=== PATIENT | male | born 1945 | race Asian ===

== ENCOUNTER 2017-11-15 11:37 | Outpatient (CLI) | payer OTHER ==
[2017-11-15 14:46] LABS: Bilirubin Negative (Negative); Blood, Urine Negative (Negative); Clarity CLEAR (Clear); Glucose, Urine (Dipstick) Negative (Negative); Leukocyte Negative (Negative); Nitrite Negative (Negative); Protein, Urine (Dipstick) Negative (Neg-Trace); Specific Gravity, Urine 1.014 (1.002-1.036); Urobilinogen 0.2 mg/dL (0.2-1.0)
[2017-11-15 14:48] LABS: Bacteria/HPF None Seen HPF (None Seen); Hemoglobin 15.9 g/dL (14.0-18.0); Hyaline Casts/LPF 0-3 HYALINE CAST LPF (0-3 Hyaline); Mean Corpuscular HGB CONC 32.4 g/dL (32.0-36.0); Mean Corpuscular Hemoglobin 28.7 pg (27.0-31.0); Mean Corpuscular Volume 88.6 fL (78.0-98.0); Mean Platelet Volume 7.3 fL (7.4-10.4); Platelet Count 194 thou/uL (130-400); RBC Distribution Width 12.1 % (11.5-14.5); RBC/HPF 0-3 HPF (0-3); Red Blood Cell (RBC) Count 5.56 mill/uL (4.70-6.10); Squamous Epithelial None Seen HPF (0-3); WBC/HPF None Seen HPF (0-3); White Blood Cell (WBC) Count 7.1 thou/uL (4.8-10.8)
[2017-11-15 14:57] LABS: Prothrombin Time 13.3 SEC (12.0-14.7)
[2017-11-15 15:08] LABS: Anion Gap 13 mmol/L (10-20); BUN (Urea Nitrogen) 12 mg/dL (8.4-25.7); Calc. Creatinine Clearance 0 mL/min (70-130); Calcium 9.8 mg/dL (7.8-10.44); Carbon Dioxide 25 mmol/L (23-31); Chloride 102 mmol/L (98-107); Estimated GFR-MDRD 80; Glucose 107 mg/dL (80-115); Potassium 3.9 mmol/L (3.5-5.1); Sodium 136 mmol/L (136-145)
--- NOTE | 2017-11-15 15:31 | EKG ---
Test Reason : Blood Pressure : / mmHG Vent. Rate : 063 BPM Atrial Rate : 063 BPM P-R Int : 166 ms QRS Dur : 110 ms QT Int : 436 ms P-R-T Axes : 069 -43 057 degrees QTc Int : 446 ms Normal sinus rhythm Left axis deviation Cannot rule out Anterior infarct , age undetermined Abnormal ECG No previous ECGs available Confirmed by BIRDIE RAMOS, DR. Lara ([id number]) on 11/15/2017 3:30:46 PM Referred By: ELIN Confirmed By:DR. Marco PACKER MD
== END 2017-11-15 11:38 | disposition home or self-care (01) ==
LOC: LABBT 11:37
PROVIDERS: ATTEND Orthopaedic Surgery
DX: Z01.818 Encounter for other preprocedural examination (principal); M17.11 Unilateral primary osteoarthritis, right knee
CPT/HCPCS: 80048; 81001; 85027; 85610; 87081; 93005; 93010

== ENCOUNTER 2017-11-15 14:30 | Inpatient (IN) | payer OTHER ==
[2017-11-15 12:34] VITALS: BMI 31.3
[2017-11-27] MEDS ORDERED: CEFAZOLIN/Water 2 GM/20 ML SYRINGE ONE (05:57)
[2017-11-27] MEDS ORDERED: Sodium Chloride 0.9% 100 ML ONE (05:57)
[2017-11-27] MEDS ORDERED: Vancomycin HCl 1.5 GM in Sodium Chloride 0.9% 250 ML 300 ML IVPB SCH ×2 (06:15→18:00)
[2017-11-27] MEDS ORDERED: Fentanyl 100 MCG/2 ML VIAL ONE ×5 (06:17→09:45)
[2017-11-27] MEDS ORDERED: Midazolam HCl 2 mg/2 ml Vial ONE (06:17)
[2017-11-27] MEDS ORDERED: Promethazine HCl 25 MG/ML VIAL IM PRN ×3 (07:02→11:41)
[2017-11-27] MEDS ORDERED: Zolpidem Tartrate 5 MG TAB PO PRN ×2 (07:02→11:41)
[2017-11-27] MEDS ORDERED: Ropivacaine HCl/PF 250 ML in Premix Bag 1 BAG NERVE BLCK SCH (07:02)
[2017-11-27] MEDS ORDERED: traMADol HCl 50 MG TAB PO PRN ×3 (07:02→11:41)
[2017-11-27] MEDS ORDERED: Ondansetron HCl/PF 4 MG/2 ML Vial IVP PRN ×3 (07:02→11:41)
[2017-11-27] MEDS ORDERED: Ketorolac Tromethamine 30 MG/ML VIAL IVP PRN ×2 (07:02→11:41)
[2017-11-27] MEDS ORDERED: HYDROcodone/Acetaminophen 7.5/325 mg Tablet PO PRN ×2 (07:03→07:04)
[2017-11-27] MEDS ORDERED: Fentanyl 100 MCG/2 ML VIAL IV PRN (07:03)
[2017-11-27] MEDS ORDERED: Bupivacaine/Epinephrine 0.25% 30 ML VIAL ONE ×2 (07:10→11:24)
[2017-11-27] MEDS ORDERED: Promethazine HCl 25 MG/ML VIAL SLOW IVP PRN (09:22)
[2017-11-27] MEDS ORDERED: Tranexamic Acid 1,000 MG in Sodium Chloride 0.9% 100 ML IVPB SCH (09:30)
[2017-11-27] MEDS ORDERED: Ropivacaine 0.2% 550 ML 550 ML NERVE BLCK SCH (09:44)
--- NOTE | 2017-11-27 10:03 | RAD ---
RIGHT KNEE TWO VIEWS: History: Post op. FINDINGS: Total knee prosthesis is in good position. No signs of fracture. IMPRESSION: Placement of a total knee prosthesis. POS: [facility]
[2017-11-27] MEDS ORDERED: Lidocaine 1% (PF) 30 ML VIAL ONE (10:27)
[2017-11-27] MEDS ORDERED: Ropivacaine 0.5% HCl/PF (150 MG/30 ML VIAL) ONE (11:24)
[2017-11-27] MEDS ORDERED: Ropivacaine 0.2% HCl/PF (40 MG/20 ML VIAL) ONE (11:24)
[2017-11-27] MEDS ORDERED: diphenhydrAMINE 25 MG CAP PO PRN (11:41)
[2017-11-27] MEDS ORDERED: Fentanyl 100 MCG/2 ML VIAL SLOW IVP PRN ×2 (11:41)
[2017-11-27] MEDS ORDERED: HYDROcodone/Acetaminophen 10/325 mg Tablet PO PRN (11:41)
[2017-11-27] MEDS ORDERED: Acetaminophen 325 MG TAB PO PRN (11:41)
[2017-11-27] MEDS ORDERED: Aspirin 81 mg Enteric Coated Tablet PO SCH (12:00)
[2017-11-27] MEDS ORDERED: Ferrous Gluconate 324 MG TAB PO SCH (12:00)
[2017-11-27] MEDS ORDERED: Multivitamin W/ Minerals 1 TAB PO SCH (12:00)
[2017-11-27] MEDS ORDERED: Senokot S 8.6-50 MG TAB PO SCH (12:00)
[2017-11-27] MEDS: HYDROcodone/Acetaminophen 10/325 mg Tablet PO PRN ×2 (12:14→21:33)
[2017-11-27] MEDS ORDERED: Milk Of Magnesia 30 ML UDCUP PO PRN (13:00)
[2017-11-27] MEDS ORDERED: Eucerin (Mineral Oil/Petrolatum,White) 30 gm Jar TOP PRN (13:00)
[2017-11-27] MEDS ORDERED: Senokot 8.6 MG TAB PO PRN (13:00)
[2017-11-27] MEDS ORDERED: Diabetic Tussin 200 MG/10 ML UDCUP PO PRN (13:00)
[2017-11-27] MEDS ORDERED: hydrALAZINE 20 MG/ML VIAL SLOW IVP PRN (13:00)
[2017-11-27] MEDS ORDERED: Ondansetron ODT 4 MG TAB PO PRN (13:00)
[2017-11-27] MEDS ORDERED: Artificial Tears 18 DROP/0.9 ML EA EYE PRN (13:00)
[2017-11-27] MEDS ORDERED: Loperamide HCl 2 MG CAP PO PRN (13:00)
[2017-11-27] MEDS ORDERED: Chloraseptic Spray 180 ml Bottle PO PRN (13:00)
[2017-11-27] MEDS ORDERED: Sodium Chloride 0.65% Nasal 44 ML BOT EA NARE PRN (13:00)
[2017-11-27] MEDS ORDERED: Mag-Al 1200 mg/1200 mg/30 ML UDCUP PO PRN (13:00)
--- NOTE | 2017-11-27 13:03 | PDOC.PN ---
- Subjective Encounter Start Date: 11/27/17 Encounter Start Time: 12:00 pt is admitted for right TKR, done without complication, we are consulted for medical management pt is currently asymptomatic Patient seen and examined. No new complaints. - Objective Resuscitation Status: Resuscitation Status FULL:Full Resuscitation MAR Reviewed: Yes Vital Signs & Weight: Vital Signs (12 hours) Temp Pulse Resp BP Pulse Ox 11/27/17 10:55 97.5 F L 74 18 109/69 100 Weight Weight 200 lb Radiology Reviewed by me: Yes (knee xray reviewed) Phys Exam - Physical Examination Constitutional: NAD HEENT: PERRLA, moist MMs, sclera anicteric Neck: no JVD, supple Respiratory: no wheezing, no rales, no rhonchi Cardiovascular: RRR, no significant murmur, no rub Gastrointestinal: soft, non-tender, no distention, positive bowel sounds Musculoskeletal: no edema, pulses present right knee with dressing, nerve block in place Neurological: non-focal, normal sensation, moves all 4 limbs Psychiatric: normal affect, A&O x 3 Skin: no rash, normal turgor Dx/Plan (1) Status post total right knee replacement Code(s): Z96.651 - PRESENCE OF RIGHT ARTIFICIAL KNEE JOINT Status: Acute (2) GERD (gastroesophageal reflux disease) Code(s): K21.9 - GASTRO-ESOPHAGEAL REFLUX DISEASE WITHOUT ESOPHAGITIS Status: Chronic (3) Hypertension Code(s): I10 - ESSENTIAL (PRIMARY) HYPERTENSION Status: Chronic (4) Obesity (BMI 30.0-34.9) Code(s): E66.9 - OBESITY, UNSPECIFIED Status: Chronic (5) Osteoarthritis Code(s): M19.90 - UNSPECIFIED OSTEOARTHRITIS, UNSPECIFIED SITE Status: Chronic - Plan cont current plan of care, PT/OT * continue aspirin for DVT prophylaxis as per protocol * add pepcid for GI prophylaxis * code status- full code * nerve block as per anesthesia * PT/OT as per [facility] [place] protocol * pain control with pain meds as below * medication reviewed as below * symptomatic treatment * home medication reconciled. Review of Systems - Review of Systems Eyes: negative: Pain, Vision Change, Conjunctivae Inflammation, Eyelid Inflammation, Redness, Other ENT: negative: Ear Pain, Ear Discharge, Nose Pain, Nose Discharge, Nose Congestion, Mouth Pain, Mouth Swelling, Throat Pain, Throat Swelling, Other Respiratory: negative: Cough, Dry, Shortness of Breath, Hemoptysis, SOB with Excertion, Pleuritic Pain, Sputum, Wheezing Cardiovascular: negative: chest pain, palpitations, orthopnea, paroxysmal nocturnal dyspnea, edema, light headedness, other Gastrointestinal: negative: Nausea, Vomiting, Abdominal Pain, Diarrhea, Constipation, Melena, Hematochezia, Other Genitourinary: negative: Dysuria, Frequency, Incontinence, Hematuria, Retention , Other Musculoskeletal: negative: Neck Pain, Shoulder Pain, Arm Pain, Back Pain, Hand Pain, Leg Pain, Foot Pain, Other Skin: negative: Rash, Lesions, Rocky, Bruising, Other - Medications/Allergies Allergies/Adverse Reactions: Allergies Allergy/AdvReac Type Severity Reaction Status Date / Time tamsulosin [From Flomax] Allergy Verified 11/15/17 13:25 Medications: Current Medications Acetaminophen (Tylenol) 650 mg PO Q4H PRN PRN Reason: SHETTY/ T > 101F; Mild Pain (1-3) Hydrocodone Bitart/Acetaminophen ([place] 10/325) 1 tab PO Q4H PRN PRN Reason: Moderate Pain (4-6) Hydrocodone Bitart/Acetaminophen ([place] 10/325) 2 tab PO Q4H PRN PRN Reason: Severe Pain (7-10) Last Admin: 11/27/17 12:14 Dose: 2 tab Al Hydroxide/Mg Hydroxide (Maalox) 15 ml PO Q4H PRN PRN Reason: Heartburn or Indigestion Artificial Tears (Tears Naturale) 0 drop EA EYE PRN PRN PRN Reason: Dry Eyes Aspirin (Ecotrin) 81 mg PO BID [facility] Aspirin (Ecotrin) 81 mg PO NOW [facility] Stop: 11/27/17 14:00 Last Admin: 11/27/17 12:14 Dose: 81 mg Atorvastatin Calcium (Lipitor) 20 mg PO DAILY [facility] Cefazolin Sodium (Ancef) 2 gm SLOW IVP Q8HR [facility] Stop: 11/27/17 22:01 Diphenhydramine HCl (Benadryl) 25 mg PO Q6H PRN PRN Reason: Itching Divalproex Sodium (Depakote) 500 mg PO DAILY [facility] Famotidine (Pepcid) 20 mg PO BID [facility] Fentanyl (Sublimaze) 50 mcg SLOW IVP Q30MIN PRN PRN Reason: Moderate Pain (4-6) Fentanyl (Sublimaze) 100 mcg SLOW IVP Q1H PRN PRN Reason: Severe Pain (7-10) Ferrous Gluconate (Fergon) 324 mg PO BID [facility] Ferrous Gluconate (Fergon) 324 mg PO NOW [facility] Stop: 11/27/17 14:00 Last Admin: 11/27/17 12:13 Dose: 324 mg Guaifenesin (Robitussin Sf) 200 mg PO Q4H PRN PRN Reason: Cough Hydralazine HCl (Apresoline) 10 mg SLOW IVP Q4H PRN PRN Reason: Systolic BP > 180 Ropivacaine (Ropivacaine 0.2% 550 Ml) 550 mls @ 0 mls/hr NERVE BLCK INF [facility] Dextrose/Sodium Chloride (D5 1/2 Ns) 1,000 mls @ 100 mls/hr IV .Q10H [facility] Vancomycin HCl 1.5 gm/ Sodium (Chloride) 300 mls @ 200 mls/hr IVPB 1800 [facility] Stop: 11/27/17 21:00 Iron/Minerals/Multivitamins (Theragran M) 1 tab PO DAILY [facility] Iron/Minerals/Multivitamins (Theragran M) 1 tab PO NOW [facility] Stop: 11/27/17 14:00 Last Admin: 11/27/17 12:13 Dose: 1 tab Ketorolac Tromethamine (Toradol) 15 mg IVP Q8HR PRN PRN Reason: Pain Stop: 11/29/17 11:42 Loperamide HCl (Imodium) 2 mg PO PRN PRN PRN Reason: Diarrhea/Loose Stools Magnesium Hydroxide (Milk Of Magnesium) 30 ml PO DAILYPRN PRN PRN Reason: Constipation Mineral Oil/White Petrolatum (Eucerin Cream) 0 gm TOP BIDPRN PRN PRN Reason: Dry Skin Ondansetron HCl (Zofran) 4 mg IVP Q6H PRN PRN Reason: Nausea/Vomiting Ondansetron HCl (Zofran Odt) 4 mg PO Q6H PRN PRN Reason: Nausea/Vomiting Phenol (Chloraseptic [place] 180 Ml Bot) 0 ml PO PRN PRN PRN Reason: Sore Throat Promethazine HCl (Phenergan) 12.5 mg IM Q4H PRN PRN Reason: Nausea/Vomiting Senna (Senokot) 2 tab PO HSPRN PRN PRN Reason: Constipation Senna/Docusate Sodium (Senokot S) 2 tab PO BID [facility] Senna/Docusate Sodium (Senokot S) 2 tab PO NOW [facility] Stop: 11/27/17 14:00 Last Admin: 11/27/17 12:13 Dose: 2 tab Sodium Chloride (Flush - Normal Saline) 10 ml IVF PRN PRN PRN Reason: Saline Flush Sodium Chloride ([place] Nasal [place] 0.65%) 0 ml EA NARE QIDPRN PRN PRN Reason: Nasal Congestion Tramadol HCl (Ultram) 100 mg PO Q6H PRN PRN Reason: Mild Pain (1-3) Zolpidem Tartrate (Ambien) 5 mg PO HSPRN PRN PRN Reason: Insomnia
[2017-11-27] MEDS ORDERED: Ketorolac Tromethamine 30 MG/ML VIAL ONE (13:26)
[2017-11-27] MEDS ORDERED: Ondansetron HCl/PF 4 MG/2 ML Vial ONE (13:26)
[2017-11-27] MEDS ORDERED: PROPOFOL 200 MG/20 ML VIAL ONE (13:26)
--- NOTE | 2017-11-27 15:43 | OP ---
DATE OF PROCEDURE: 11/27/2017 PREOPERATIVE DIAGNOSIS: Right knee osteoarthritis. POSTOPERATIVE DIAGNOSIS: Right knee osteoarthritis. PROCEDURE PERFORMED: Right total knee arthroplasty. STAFF: Hakan Marks M.D. [employer] OPERATOR: Han Hyde PA-C ANESTHESIA: Jones. The patient received LMA with a single shot sciatic and an indwelling abductor canal catheter. ESTIMATED BLOOD LOSS: 200 mL. TOURNIQUET TIME: 88 minutes at 300 mmHg. ANTIBIOTICS: Ancef 2 grams, vancomycin 1.5 grams. The patient received TXA 1 gram. IMPLANTS: [place] [employer] components, size 4, CR femur, size 4 tibial primary baseplate and 4 CS 9 mm poly and A29 patella with antibiotic Simplex cement. COMPLICATIONS: None. HISTORY OF PRESENT ILLNESS: Mr. Marroquin is a 71-year-old male, who speaks farsi through his son as well as an translator and interpreter. I previously had talked to him about right total knee arthroplasty done with history of a left total knee arthroplasty. I discussed with the patient the risks and benefits of right total knee arthroplasty to include pain, scar, bleeding, infection, damage to vital structures, decreased range of motion or strength, continued pain despite surgical intervention, damage to vital signs structures, loss of life or limb, fracture above the implants. The patient understood these risks and did elect to proceed. DESCRIPTION OF PROCEDURE: Timeout was performed designating the patient's right lower extremity as the operative site based on sight, consents, markings. After completion of timeout, the patient's extremity was prepped and draped in sterile fashion. Anterior midline approach, medial patellar arthrotomy, exposed the femur. The patient preoperatively had about a 10-degree flexion contracture that we took down the medial soft tissue release to excise our fat pad. We mapped out our femur, cut it in 4 degrees of anterior slope with 10 and 8 mm respectively to help with elevation of the joint line. We then had a good butterfly. We then placed the guide, 3 degrees of external rotation, and mapped a cut of 4 with a little bit of notching, but I felt like it sized better medial laterally, after osteophytes were removed. I then took an anterior and posterior chamfer cuts, removed the osteophytes. We then placed our pickle fork in place and we took down the ACL. We exposed the tibia. We mapped out the tibia with our guide and cut in 0 degrees varus valgus, 4 degrees of slope, and cut 0 and 8. We ended up having to go up 2 more mm due to the tightness. We then placed our laminar jig mill operator. We did our medial soft tissue release and took down the medial tibia to help with our medial soft tissue release, taking the osteotome posteriorly to decompress. The PCL was intact. With our PCL release, we then moved laterally and removed the lateral meniscus, removed osteophytes posteriorly. After the decompression, I placed our tray in place. I put him through an arc of flexion and extension. Therefore, I did not desire to move forward with any further flexion, so we went back and recut 2 more millimeters of patella. After we did that, the patient came in with full extension, maybe 5 degrees hyperextension, had good stability, varus and valgus, had good anterior and posterior drawer. I like the overall alignment of components. Therefore, I elected take this and finally everted the patella cut it from 28 down to about 17 mm, placed an A29 patella, which medialized. We then did a little bit of the lateral release, was then tracking quite as well as I would like. We then washed, drilled as well as cut our keel for tibia, cemented our tibia, placed our poly, cemented our femur, and removed all excess cement. We then everted and cemented our patella. We closed the arthrotomy with #2 Vicryl, #2 Quill, 0 Quill, 2-0 Quill , and glue. The patient will be admitted to [facility] for postop protocol. I will follow up with the patient in-house in the next 2 weeks. The patient will use antibiotic vancomycin. MENDY
[2017-11-27] MEDS: CEFAZOLIN/Water 2 GM/20 ML SYRINGE SLOW IVP SCH ×2 (15:45→21:39)
[2017-11-27] MEDS: Dextrose 5 %-0.45 % NaCl 1,000 ML IV SCH ×2 (18:08→21:50)
[2017-11-27] MEDS: Famotidine 20 MG TAB PO SCH (21:32)
[2017-11-27] MEDS: Ferrous Gluconate 324 MG TAB PO SCH (21:33)
[2017-11-27] MEDS: Aspirin 81 mg Enteric Coated Tablet PO SCH (21:33)
[2017-11-27] MEDS: Senokot S 8.6-50 MG TAB PO SCH (21:33)
[2017-11-28] MEDS: HYDROcodone/Acetaminophen 10/325 mg Tablet PO PRN ×4 (02:20→23:10)
[2017-11-28 05:52] LABS: Hemoglobin 12.7 g/dL (14.0-18.0); Mean Corpuscular HGB CONC 33.2 g/dL (32.0-36.0); Mean Corpuscular Volume 87.5 fL (78.0-98.0); Mean Platelet Volume 6.7 fL (7.4-10.4); Platelet Count 153 thou/uL (130-400); Red Blood Cell (RBC) Count 4.36 mill/uL (4.70-6.10); White Blood Cell (WBC) Count 7.9 thou/uL (4.8-10.8)
[2017-11-28] MEDS: Dextrose 5 %-0.45 % NaCl 1,000 ML IV SCH ×2 (07:44→10:07)
[2017-11-28] MEDS: Atorvastatin Calcium 20 MG TAB PO SCH (09:07)
[2017-11-28] MEDS: Aspirin 81 mg Enteric Coated Tablet PO SCH ×2 (09:11→20:48)
[2017-11-28] MEDS: Ferrous Gluconate 324 MG TAB PO SCH ×2 (09:11→20:48)
[2017-11-28] MEDS: Senokot S 8.6-50 MG TAB PO SCH ×2 (09:11→20:48)
[2017-11-28] MEDS: Multivitamin W/ Minerals 1 TAB PO SCH (09:11)
[2017-11-28] MEDS: Famotidine 20 MG TAB PO SCH ×2 (09:12→20:48)
[2017-11-28] MEDS: Divalproex Sodium DR 500 MG TAB PO SCH (09:26)
--- NOTE | 2017-11-28 10:20 | PDOC.PN ---
- Subjective Encounter Start Date: 11/28/17 Encounter Start Time: 08:20 Patient seen and examined. No new complaints. No overnight events today pt is doing well, pain is controlled - Objective Resuscitation Status: Resuscitation Status FULL:Full Resuscitation MAR Reviewed: Yes Vital Signs & Weight: Vital Signs (12 hours) Temp Pulse Resp BP BP Pulse Ox 11/28/17 08:25 93 L 11/28/17 07:30 97.6 F 82 18 115/70 93 L 11/28/17 04:30 99.3 F 98 16 115/69 93 L 11/28/17 00:43 97.6 F 96 16 93/55 L 93 L Weight Weight 200 lb I&O: 11/27/17 11/28/17 11/29/17 06:59 06:59 06:59 Intake Total 1925 Output Total 300 Balance 1625 Result Diagrams: 11/28/17 05:19 Phys Exam - Physical Examination Constitutional: NAD HEENT: PERRLA, moist MMs, sclera anicteric Neck: no JVD, supple Respiratory: no wheezing, no rales, no rhonchi Cardiovascular: RRR, no significant murmur, no rub Gastrointestinal: soft, non-tender, no distention, positive bowel sounds right knee with dressing, nerve block in place Neurological: non-focal, normal sensation, moves all 4 limbs Lymphatic: no nodes Psychiatric: normal affect, A&O x 3 Skin: no rash, normal turgor Dx/Plan (1) Status post total right knee replacement Code(s): Z96.651 - PRESENCE OF RIGHT ARTIFICIAL KNEE JOINT Status: Acute (2) GERD (gastroesophageal reflux disease) Code(s): K21.9 - GASTRO-ESOPHAGEAL REFLUX DISEASE WITHOUT ESOPHAGITIS Status: Chronic (3) Hypertension Code(s): I10 - ESSENTIAL (PRIMARY) HYPERTENSION Status: Chronic (4) Obesity (BMI 30.0-34.9) Code(s): E66.9 - OBESITY, UNSPECIFIED Status: Chronic (5) Osteoarthritis Code(s): M19.90 - UNSPECIFIED OSTEOARTHRITIS, UNSPECIFIED SITE Status: Chronic - Plan cont current plan of care, PT/OT * continue aspirin for DVT prophylaxis as per protocol * continue pepcid for GI prophylaxis * nerve block as per anesthesia * PT/OT as per [facility] protocol * pain control with pain meds as below * medication reviewed as below * symptomatic treatment * medically stable with current treatment * discharge will defer to primary team Review of Systems - Review of Systems Eyes: negative: Pain, Vision Change, Conjunctivae Inflammation, Eyelid Inflammation, Redness, Other ENT: negative: Ear Pain, Ear Discharge, Nose Pain, Nose Discharge, Nose Congestion, Mouth Pain, Mouth Swelling, Throat Pain, Throat Swelling, Other Respiratory: negative: Cough, Dry, Shortness of Breath, Hemoptysis, SOB with Excertion, Pleuritic Pain, Sputum, Wheezing Cardiovascular: negative: chest pain, palpitations, orthopnea, paroxysmal nocturnal dyspnea, edema, light headedness, other Gastrointestinal: negative: Nausea, Vomiting, Abdominal Pain, Diarrhea, Constipation, Melena, Hematochezia, Other Genitourinary: negative: Dysuria, Frequency, Incontinence, Hematuria, Retention , Other Musculoskeletal: negative: Neck Pain, Shoulder Pain, Arm Pain, Back Pain, Hand Pain, Leg Pain, Foot Pain, Other Skin: negative: Rash, Lesions, Rocky, Bruising, Other - Medications/Allergies Allergies/Adverse Reactions: Allergies Allergy/AdvReac Type Severity Reaction Status Date / Time tamsulosin [From Flomax] Allergy Verified 11/15/17 13:25 Medications: Current Medications Acetaminophen (Tylenol) 650 mg PO Q4H PRN PRN Reason: SHETTY/ T > 101F; Mild Pain (1-3) Hydrocodone Bitart/Acetaminophen ([place] 10/325) 1 tab PO Q4H PRN PRN Reason: Moderate Pain (4-6) Hydrocodone Bitart/Acetaminophen ([place] 10/325) 2 tab PO Q4H PRN PRN Reason: Severe Pain (7-10) Last Admin: 11/28/17 09:11 Dose: 2 tab Al Hydroxide/Mg Hydroxide (Maalox) 15 ml PO Q4H PRN PRN Reason: Heartburn or Indigestion Artificial Tears (Tears Naturale) 0 drop EA EYE PRN PRN PRN Reason: Dry Eyes Aspirin (Ecotrin) 81 mg PO BID [facility] Last Admin: 11/28/17 09:11 Dose: 81 mg Atorvastatin Calcium (Lipitor) 20 mg PO DAILY [facility] Last Admin: 11/28/17 09:07 Dose: 20 mg Diphenhydramine HCl (Benadryl) 25 mg PO Q6H PRN PRN Reason: Itching Divalproex Sodium (Depakote) 500 mg PO DAILY [facility] Last Admin: 11/28/17 09:26 Dose: 500 mg Famotidine (Pepcid) 20 mg PO BID [facility] Last Admin: 11/28/17 09:12 Dose: 20 mg Fentanyl (Sublimaze) 50 mcg SLOW IVP Q30MIN PRN PRN Reason: Moderate Pain (4-6) Fentanyl (Sublimaze) 100 mcg SLOW IVP Q1H PRN PRN Reason: Severe Pain (7-10) Ferrous Gluconate (Fergon) 324 mg PO BID [facility]PL[facility] Last Admin: 11/28/17 09:11 Dose: 324 mg Guaifenesin (Robitussin Sf) 200 mg PO Q4H PRN PRN Reason: Cough Hydralazine HCl (Apresoline) 10 mg SLOW IVP Q4H PRN PRN Reason: Systolic BP > 180 Ropivacaine (Ropivacaine 0.2% 550 Ml) 550 mls @ 0 mls/hr NERVE BLCK INF REPLACED BY [facility] Dextrose/Sodium Chloride (D5 1/2 Ns) 1,000 mls @ 100 mls/hr IV .Q10H REPLACED BY [facility] Last Admin: 11/28/17 10:07 Dose: Not Given Iron/Minerals/Multivitamins (Theragran M) 1 tab PO DAILY [facility] Last Admin: 11/28/17 09:11 Dose: 1 tab Ketorolac Tromethamine (Toradol) 15 mg IVP Q8HR PRN PRN Reason: Pain Stop: 11/29/17 11:42 Last Admin: 11/28/17 04:23 Dose: 15 mg Loperamide HCl (Imodium) 2 mg PO PRN PRN PRN Reason: Diarrhea/Loose Stools Magnesium Hydroxide (Milk Of Magnesium) 30 ml PO DAILYPRN PRN PRN Reason: Constipation Mineral Oil/White Petrolatum (Eucerin Cream) 0 gm TOP BIDPRN PRN PRN Reason: Dry Skin Ondansetron HCl (Zofran) 4 mg IVP Q6H PRN PRN Reason: Nausea/Vomiting Ondansetron HCl (Zofran Odt) 4 mg PO Q6H PRN PRN Reason: Nausea/Vomiting Phenol (Chloraseptic [place] 180 Ml Bot) 0 ml PO PRN PRN PRN Reason: Sore Throat Promethazine HCl (Phenergan) 12.5 mg IM Q4H PRN PRN Reason: Nausea/Vomiting Senna (Senokot) 2 tab PO HSPRN PRN PRN Reason: Constipation Senna/Docusate Sodium (Senokot S) 2 tab PO BID [facility] Last Admin: 11/28/17 09:11 Dose: 2 tab Sodium Chloride (Flush - Normal Saline) 10 ml IVF PRN PRN PRN Reason: Saline Flush Sodium Chloride ([place] Nasal [place] 0.65%) 0 ml EA NARE QIDPRN PRN PRN Reason: Nasal Congestion Tramadol HCl (Ultram) 100 mg PO Q6H PRN PRN Reason: Mild Pain (1-3) Zolpidem Tartrate (Ambien) 5 mg PO HSPRN PRN PRN Reason: Insomnia
[2017-11-29] MEDS: Dextrose 5 %-0.45 % NaCl 1,000 ML IV SCH ×2 (04:55→14:07)
[2017-11-29 05:48] LABS: Hemoglobin 12.6 g/dL (14.0-18.0); Mean Corpuscular HGB CONC 33.1 g/dL (32.0-36.0); Mean Corpuscular Hemoglobin 29.3 pg (27.0-31.0); Mean Corpuscular Volume 88.7 fL (78.0-98.0); Platelet Count 152 thou/uL (130-400); Red Blood Cell (RBC) Count 4.31 mill/uL (4.70-6.10); White Blood Cell (WBC) Count 8.1 thou/uL (4.8-10.8)
[2017-11-29] MEDS: Atorvastatin Calcium 20 MG TAB PO SCH (08:37)
[2017-11-29] MEDS: Famotidine 20 MG TAB PO SCH (08:37)
[2017-11-29] MEDS: Multivitamin W/ Minerals 1 TAB PO SCH (08:37)
[2017-11-29] MEDS: Divalproex Sodium DR 500 MG TAB PO SCH (08:37)
[2017-11-29] MEDS: Ferrous Gluconate 324 MG TAB PO SCH (08:37)
[2017-11-29] MEDS: Aspirin 81 mg Enteric Coated Tablet PO SCH (08:37)
[2017-11-29] MEDS: HYDROcodone/Acetaminophen 10/325 mg Tablet PO PRN ×2 (08:38→16:39)
[2017-11-29] MEDS: Senokot S 8.6-50 MG TAB PO SCH (08:38)
--- NOTE | 2017-11-29 09:38 | PDOC.PN ---
- Subjective Encounter Start Date: 11/29/17 Encounter Start Time: 07:50 Patient seen and examined. No new complaints. No overnight events - Objective Resuscitation Status: Resuscitation Status FULL:Full Resuscitation MAR Reviewed: Yes Vital Signs & Weight: Vital Signs (12 hours) Temp Pulse Resp BP Pulse Ox 11/29/17 08:54 98.3 F 82 16 111/62 94 L 11/29/17 03:31 98.7 F 91 16 126/75 91 L 11/28/17 23:47 98.7 F 97 18 121/72 93 L Weight Admit Weight 200 lb Weight 200 lb I&O: 11/28/17 11/29/17 11/30/17 06:59 06:59 06:59 Intake Total 1925 1450 Output Total 300 900 Balance 1625 550 Result Diagrams: 11/29/17 05:08 Phys Exam - Physical Examination Constitutional: NAD HEENT: PERRLA, moist MMs, sclera anicteric Neck: no JVD, supple Respiratory: no wheezing, no rales, no rhonchi Cardiovascular: RRR, no significant murmur, no rub Gastrointestinal: soft, non-tender, no distention, positive bowel sounds Musculoskeletal: no edema, pulses present right knee with dressing, nerve block in place Neurological: non-focal, normal sensation, moves all 4 limbs Psychiatric: normal affect, A&O x 3 Skin: no rash, normal turgor Dx/Plan (1) Status post total right knee replacement Code(s): Z96.651 - PRESENCE OF RIGHT ARTIFICIAL KNEE JOINT Status: Acute (2) GERD (gastroesophageal reflux disease) Code(s): K21.9 - GASTRO-ESOPHAGEAL REFLUX DISEASE WITHOUT ESOPHAGITIS Status: Chronic (3) Hypertension Code(s): I10 - ESSENTIAL (PRIMARY) HYPERTENSION Status: Chronic (4) Obesity (BMI 30.0-34.9) Code(s): E66.9 - OBESITY, UNSPECIFIED Status: Chronic (5) Osteoarthritis Code(s): M19.90 - UNSPECIFIED OSTEOARTHRITIS, UNSPECIFIED SITE Status: Chronic - Plan cont current plan of care, PT/OT * medication reviewed as below * symptomatic treatment * pain controlled * doing well * medically stable * OK to DC if primary team ok. * resume home meds on discharge Review of Systems - Review of Systems ENT: negative: Ear Pain, Ear Discharge, Nose Pain, Nose Discharge, Nose Congestion, Mouth Pain, Mouth Swelling, Throat Pain, Throat Swelling, Other Respiratory: negative: Cough, Dry, Shortness of Breath, Hemoptysis, SOB with Excertion, Pleuritic Pain, Sputum, Wheezing Cardiovascular: negative: chest pain, palpitations, orthopnea, paroxysmal nocturnal dyspnea, edema, light headedness, other Gastrointestinal: negative: Nausea, Vomiting, Abdominal Pain, Diarrhea, Constipation, Melena, Hematochezia, Other Genitourinary: negative: Dysuria, Frequency, Incontinence, Hematuria, Retention , Other Musculoskeletal: negative: Neck Pain, Shoulder Pain, Arm Pain, Back Pain, Hand Pain, Leg Pain, Foot Pain, Other - Medications/Allergies Allergies/Adverse Reactions: Allergies Allergy/AdvReac Type Severity Reaction Status Date / Time tamsulosin [From Flomax] Allergy Verified 11/15/17 13:25 Medications: Current Medications Acetaminophen (Tylenol) 650 mg PO Q4H PRN PRN Reason: SHETTY/ T > 101F; Mild Pain (1-3) Hydrocodone Bitart/Acetaminophen ([place] 10/325) 1 tab PO Q4H PRN PRN Reason: Moderate Pain (4-6) Hydrocodone Bitart/Acetaminophen ([place] 10/325) 2 tab PO Q4H PRN PRN Reason: Severe Pain (7-10) Last Admin: 11/29/17 08:38 Dose: 2 tab Al Hydroxide/Mg Hydroxide (Maalox) 15 ml PO Q4H PRN PRN Reason: Heartburn or Indigestion Artificial Tears (Tears Naturale) 0 drop EA EYE PRN PRN PRN Reason: Dry Eyes Aspirin (Ecotrin) 81 mg PO BID [facility] Last Admin: 11/29/17 08:37 Dose: 81 mg Atorvastatin Calcium (Lipitor) 20 mg PO DAILY [facility] Last Admin: 11/29/17 08:37 Dose: 20 mg Diphenhydramine HCl (Benadryl) 25 mg PO Q6H PRN PRN Reason: Itching Divalproex Sodium (Depakote) 500 mg PO DAILY [facility] Last Admin: 11/29/17 08:37 Dose: 500 mg Famotidine (Pepcid) 20 mg PO BID [facility] Last Admin: 11/29/17 08:37 Dose: 20 mg Fentanyl (Sublimaze) 50 mcg SLOW IVP Q30MIN PRN PRN Reason: Moderate Pain (4-6) Fentanyl (Sublimaze) 100 mcg SLOW IVP Q1H PRN PRN Reason: Severe Pain (7-10) Ferrous Gluconate (Fergon) 324 mg PO BID [facility] Last Admin: 11/29/17 08:37 Dose: 324 mg Guaifenesin (Robitussin Sf) 200 mg PO Q4H PRN PRN Reason: Cough Hydralazine HCl (Apresoline) 10 mg SLOW IVP Q4H PRN PRN Reason: Systolic BP > 180 Ropivacaine (Ropivacaine 0.2% 550 Ml) 550 mls @ 0 mls/hr NERVE BLCK INF [facility] Dextrose/Sodium Chloride (D5 1/2 Ns) 1,000 mls @ 100 mls/hr IV .Q10H [facility] Last Admin: 11/29/17 04:55 Dose: Not Given Iron/Minerals/Multivitamins (Theragran M) 1 tab PO DAILY [facility] Last Admin: 11/29/17 08:37 Dose: 1 tab Ketorolac Tromethamine (Toradol) 15 mg IVP Q8HR PRN PRN Reason: Pain Stop: 11/29/17 11:42 Last Admin: 11/28/17 04:23 Dose: 15 mg Loperamide HCl (Imodium) 2 mg PO PRN PRN PRN Reason: Diarrhea/Loose Stools Magnesium Hydroxide (Milk Of Magnesium) 30 ml PO DAILYPRN PRN PRN Reason: Constipation Mineral Oil/White Petrolatum (Eucerin Cream) 0 gm TOP BIDPRN PRN PRN Reason: Dry Skin Ondansetron HCl (Zofran) 4 mg IVP Q6H PRN PRN Reason: Nausea/Vomiting Ondansetron HCl (Zofran Odt) 4 mg PO Q6H PRN PRN Reason: Nausea/Vomiting Phenol (Chloraseptic [place] 180 Ml Bot) 0 ml PO PRN PRN PRN Reason: Sore Throat Promethazine HCl (Phenergan) 12.5 mg IM Q4H PRN PRN Reason: Nausea/Vomiting Senna (Senokot) 2 tab PO HSPRN PRN PRN Reason: Constipation Senna/Docusate Sodium (Senokot S) 2 tab PO BID [facility] Last Admin: 11/29/17 08:38 Dose: 2 tab Sodium Chloride (Flush - Normal Saline) 10 ml IVF PRN PRN PRN Reason: Saline Flush Sodium Chloride ([place] Nasal [place] 0.65%) 0 ml EA NARE QIDPRN PRN PRN Reason: Nasal Congestion Tramadol HCl (Ultram) 100 mg PO Q6H PRN PRN Reason: Mild Pain (1-3) Last Admin: 11/29/17 01:37 Dose: 100 mg Zolpidem Tartrate (Ambien) 5 mg PO HSPRN PRN PRN Reason: Insomnia
--- NOTE | 2017-11-29 10:32 | DIS ---
DATE OF ADMISSION: 11/27/2017 DATE OF DISCHARGE: 11/29/2017 PRIMARY CARE PHYSICIAN: Dr. Bruna Will. DISCHARGE DISPOSITION: Home. PRIMARY DISCHARGE DIAGNOSIS: Status post right total knee replacement. SECONDARY DISCHARGE DIAGNOSES: Gastroesophageal reflux disease, obesity with BMI 31, hypertension, o steoarthritis. PRIMARY PROCEDURE/OPERATION: Right total knee replacement. RADIOLOGICAL INVESTIGATION: Knee x-ray. SIGNIFICANT LABORATORY DATA: WBC 8.1, hemoglobin 12.6, platelet 152. DISCHARGE MEDICATIONS: [place] 10 one or two tablets q.4 hourly p.r.n. for pain, aspirin 81 mg p.o. b. i.d., tramadol 50 mg p.o. daily, Micardis 40 mg p.o. daily, ranitidine 300 mg p.o. daily, Depakote 50 0 mg p.o. daily, Lipitor 20 mg p.o. daily. CONTRAINDICATIONS: None. CODE STATUS: FULL CODE. INPATIENT CONSULTANTS: Dr. Marks was primary while in hospital. Sound Team was consulted for [facility] comanagement. TEST RESULTS PENDING ON DISCHARGE: None. ALLERGIES: TAMSULOSIN. DISCHARGE PLAN: Post hospital, the patient will follow up with Dr. Marks on 12/18/2017 at 1:00 p.m . The patient will make followup appointment with primary care physician. HOSPITAL COURSE: A 71-year-old male with above-mentioned medical problem who was electively admitted by Dr. Marks for right total knee replacement which was done on 11/27/2017. Postoperatively, a [facility] Sound team was consulted for medical comanagement. Patient medical problem remains st able. While in hospital, we continued all his home medication. He was given aspirin for DVT prophyl axis. He had no block. He did very well with [facility] protocol treatment. The patient is p lanned for discharge by primary team today. The patient is seen and examined at bedside today. He w ill resume all his above-mentioned medication including pain medication and aspirin for DVT prophylax is. Please see my progress note from today for further detail.
[2017-11-29 15:22] VITALS: BP 132/77; TEMP 98.3
== END 2017-11-29 16:55 | disposition home or self-care (01) | DRG 470 ==
LOC: SJJU 11-27 05:34
PROVIDERS: ADMIT Orthopaedic Surgery; ATTEND Orthopaedic Surgery
PROC: 0SRC0J9 Replacement of Right Knee Joint with Synthetic Substitute, Cemented, Open Approach (ICD-10-PCS; principal; 2017-11-27)
DX: M17.11 Unilateral primary osteoarthritis, right knee (principal); K21.9 Gastro-esophageal reflux disease without esophagitis; I10 Essential (primary) hypertension; E66.9 Obesity, unspecified; Z68.31 Body mass index [BMI] 31.0-31.9, adult; Z96.652 Presence of left artificial knee joint; Z86.73 Personal history of transient ischemic attack (TIA), and cerebral infarction without residual deficits
CPT/HCPCS: 36415; 85027; 90471; 90662; A4306; C1713; C1776; G0008; G8978-GP-CK; G8979-GP-CI; J1885; J2001; J2250; J2405; J2704; J2795; J3010; J3370; J7050

== ENCOUNTER 2017-11-22 09:48 | Outpatient (CLI) | payer OTHER | END 2017-11-22 09:49 | disposition home or self-care (01) | LOC: LABBT 09:48 | PROVIDERS: ATTEND Orthopaedic Surgery | DX: Z01.812 Encounter for preprocedural laboratory examination (principal); M17.11 Unilateral primary osteoarthritis, right knee | CPT/HCPCS: 86850; 86900; 86901 ==

== ENCOUNTER 2017-12-05 09:43 | Outpatient (CLI) | payer OTHER ==
--- NOTE | 2017-12-05 12:30 | ULT ---
RIGHT LOWER EXTREMITY VENOUS DUPLEX EXAM: Technique: Deep veins of right lower extremity evaluated with color doppler, spectral analysis and co mpression. Indication: Right lower extremity pain and edema. Recent post-operative right knee replacement. FINDINGS: The deep venous of the right lower extremity show normal blood flow and compression. No evidence of D VT. IMPRESSION: No evidence of right lower extremity DVT. POS: [facility]
== END 2017-12-05 09:44 | disposition home or self-care (01) ==
LOC: ULT 09:43
PROVIDERS: ATTEND Orthopaedic Surgery
DX: M79.661 Pain in right lower leg (principal)

== ENCOUNTER 2025-01-27 10:26 | Outpatient (CLI) | payer BC | END 2025-01-27 10:27 | disposition home or self-care (01) | LOC: BICRAD 10:26 | PROVIDERS: ATTEND Nurse Practitioner Family | DX: I10 Essential (primary) hypertension (principal); M19.011 Primary osteoarthritis, right shoulder ==